=== PATIENT | female | born 1955 | race Caucasian/White ===

== ENCOUNTER → 2016-12-08 | Outpatient (REF) | LOC: LAB 11:25 | DX: E03.9 Hypothyroidism, unspecified (principal) ==

== ENCOUNTER → 2020-12-26 | Outpatient (CLI) | payer OTHER ==
[2020-12-26 10:30] LABS: ALBUMIN 4.1 g/dL (3.4-4.8); POTASSIUM 4.5 mmol/L (3.5-5.1)
[2020-12-26 10:31] LABS: CALCIUM 9.1 mg/dL (8.3-10.5)
[2020-12-26 10:32] LABS: TOTAL PROTEIN 6.6 g/dL (6.2-8.1)
[2020-12-26 10:34] LABS: TOTAL BILIRUBIN 0.6 mg/dL (0.2-1.2)
[2020-12-26 10:44] LABS: BASO # 0.03 (0.02-0.10); EOS # 0.19 (0.04-0.40); HEMATOCRIT 44.4 % (37.0-47.0); LYMPH# 1.58 (1.50-4.00); MEAN CELL VOLUME 90 fl (78-100); MEAN CORPUSCULAR HEMOGLOBIN 31 pg (27-31); MEAN CORPUSCULAR HGB CONC 34 g/dL (33-37); MEAN PLATELET VOLUME 9.6 fl (7.4-10.4); MONO # 0.49 (0.20-0.80); NEU # 3.95 (1.40-6.50); PLATELET COUNT 235 K/mm3 (130-400); RED BLOOD COUNT 4.91 M/mm3 (4.10-5.30); RED CELL DISTRIBUTION WIDTH 12.6 % (11.5-14.5); WHITE BLOOD COUNT 6.3 K/mm3 (4.8-10.8)
== END ==
LOC: LAB 09:59
PROVIDERS: Physician Assistant
DX: Z00.00 Encounter for general adult medical examination without abnormal findings (principal); E03.9 Hypothyroidism, unspecified

== ENCOUNTER → 2021-12-01 | Outpatient (CLI) | payer MEDICARE ==
[2021-12-01 14:25] LABS: BASO # 0.06 K/mm3 (0.02-0.10); EOS # 0.12 K/mm3 (0.04-0.40); EOS % 1.4 % (1.0-5.0); HEMATOCRIT 44.2 % (37.0-47.0); HEMOGLOBIN 14.4 g/dL (12.5-16.0); LYMPH# 1.78 K/mm3 (1.50-4.00); MEAN CELL VOLUME 92 fl (78-100); MEAN CORPUSCULAR HEMOGLOBIN 30 pg (27-31); MEAN CORPUSCULAR HGB CONC 33 g/dL (33-37); MEAN PLATELET VOLUME 9.2 fl (7.4-10.4); MONO # 0.59 K/mm3 (0.20-0.80); NEU # 6.15 K/mm3 (1.40-6.50); PLATELET COUNT 297 K/mm3 (130-400); RED BLOOD COUNT 4.79 M/mm3 (4.10-5.30); RED CELL DISTRIBUTION WIDTH 12.8 % (11.5-14.5); WHITE BLOOD COUNT 8.7 K/mm3 (4.8-10.8)
[2021-12-01 18:03] LABS: POTASSIUM 4.6 mmol/L (3.5-5.1)
[2021-12-01 18:04] LABS: ALBUMIN 4.4 g/dL (3.4-4.8)
[2021-12-01 18:05] LABS: CALCIUM 9.8 mg/dL (8.3-10.5)
[2021-12-01 18:06] LABS: TOTAL PROTEIN 6.7 g/dL (6.2-8.1)
[2021-12-01 18:08] LABS: TOTAL BILIRUBIN 0.3 mg/dL (0.2-1.2)
== END ==
LOC: LAB 14:12
PROVIDERS: Physician Assistant
DX: Z00.00 Encounter for general adult medical examination without abnormal findings (principal); Z13.1 Encounter for screening for diabetes mellitus; E03.9 Hypothyroidism, unspecified; E78.5 Hyperlipidemia, unspecified; K90.9 Intestinal malabsorption, unspecified; Z83.3 Family history of diabetes mellitus

== ENCOUNTER 2023-09-11 16:36 | Emergency (ER) | payer MEDICARE ==
[~2023-09-11] VITALS: Ht 157.5 cm; Wt 59.1 kg
[2023-09-11] MEDS ORDERED: LEVOTHYROXINE112 MCG PO (16:48)
[2023-09-11 18:00] VITALS: BP 192/93
== END 2023-09-11 17:45 | disposition home or self-care (01) ==
LOC: ED 16:36
DX: S51.812A Laceration without foreign body of left forearm, initial encounter (principal); Z23 Encounter for immunization; W26.0XXA Contact with knife, initial encounter; Y92.89 Other specified places as the place of occurrence of the external cause
CPT/HCPCS: 90715

== ENCOUNTER → 2023-12-15 | Outpatient (CLI) | payer MEDICARE ==
[~2023-12-15] MED LIST: LEVOTHYROXINE112 MCG PO
[2023-12-15 14:32] LABS: BASO # 0.04 K/mm3 (0.02-0.10); EOS # 0.09 K/mm3 (0.04-0.40); EOS % 1.2 % (1.0-5.0); HEMATOCRIT 44.5 % (37.0-47.0); HEMOGLOBIN 14.7 g/dL (12.5-16.0); LYMPH# 1.74 K/mm3 (1.50-4.00); MEAN CELL VOLUME 92 fl (78-100); MEAN CORPUSCULAR HEMOGLOBIN 30 pg (27-31); MEAN CORPUSCULAR HGB CONC 33 g/dL (33-37); MEAN PLATELET VOLUME 9.5 fl (7.4-10.4); MONO # 0.58 K/mm3 (0.20-0.80); NEU # 5.16 K/mm3 (1.40-6.50); PLATELET COUNT 236 K/mm3 (130-400); RED BLOOD COUNT 4.83 M/mm3 (4.10-5.30); RED CELL DISTRIBUTION WIDTH 12.5 % (11.5-14.5); WHITE BLOOD COUNT 7.6 K/mm3 (4.8-10.8)
[2023-12-15 14:38] LABS: ALBUMIN 4.7 g/dL (3.4-4.8)
[2023-12-15 14:39] LABS: CALCIUM 9.9 mg/dL (8.3-10.5)
[2023-12-15 14:40] LABS: TOTAL PROTEIN 7.1 g/dL (6.2-8.1)
[2023-12-15 14:42] LABS: TOTAL BILIRUBIN 0.7 mg/dL (0.2-1.2)
[2023-12-20 06:37] LABS: IODINE 95.9 ug/L (())
== END ==
LOC: LAB 14:04
PROVIDERS: Physician Assistant
DX: Z01.83 Encounter for blood typing (principal); E03.9 Hypothyroidism, unspecified; K90.9 Intestinal malabsorption, unspecified; E78.5 Hyperlipidemia, unspecified